=== PATIENT | female | born 1990 ===

== ENCOUNTER 2020-03-07 18:09 | Emergency (ER) | payer SELFPAY ==
[2020-03-07 18:22] VITALS: BP 124/83
--- NOTE | 2020-03-07 19:22 | Event Note ---
ED Screening Note ED Screening Note: n/v states she accidentally fell coming out of the bathroom +lower abd pain states she saw one small spot of blood states she is approximately 6 weeks states she is going to [facility] in [place] LNMP: 01/18/2020 PMHx none no allergies to meds /P:2/A:1 This initial assessment/diagnostic orders/clinical plan/treatment(s) is/are subject to change based on patients health status, clinical progression and re- assessment by fellow clinical providers in the ED. Further treatment and workup at subsequent clinical providers discretion. Patient/guardian urged not to elope from the ED as their condition may be serious if not clinically assessed and managed. Initial orders include: labs, UA, US
== END 2020-03-07 20:00 | disposition left against medical advice (07) ==
LOC: ED 18:09
DX: O21.8 Other vomiting complicating pregnancy (principal); O26.891 Other specified pregnancy related conditions, first trimester; R10.9 Unspecified abdominal pain; Z3A.01 Less than 8 weeks gestation of pregnancy; Z53.21 Procedure and treatment not carried out due to patient leaving prior to being seen by health care provider